=== PATIENT | female | born 1955 | race Caucasian/White ===

== ENCOUNTER → 2022-11-18 | Outpatient (CLI) | payer MEDICARE, OTHER ==
[~2022-11-18] VITALS: Ht 170.2 cm; Wt 106.5 kg
[~2022-11-18] MED LIST: ARIP2TAB27 PO; BUPR-344 PO; SUVO20TA; [UNRECOGNIZED DRUG - OTHER] PO
[2022-11-18 10:22] VITALS: BP 122/77
== END | disposition home or self-care (01) ==
LOC: SRCNTR 10:02
PROVIDERS: ATTEND Internal Medicine
DX: G47.33 Obstructive sleep apnea (adult) (pediatric) (principal); R06.00 Dyspnea, unspecified; E66.9 Obesity, unspecified
CPT/HCPCS: G0463; Z7500

== ENCOUNTER → 2023-05-08 | Outpatient (CLI) | payer MEDICARE, OTHER ==
[~2023-05-08] VITALS: Ht 170.2 cm; Wt 95.0 kg
[2023-05-08 09:02] VITALS: BP 130/71; PULSE 84; RESP 18; TEMP 98.2; O2SAT 97
== END | disposition home or self-care (01) ==
LOC: SRCNTR 08:51 → EDSTATUS 09:00
PROVIDERS: ATTEND Internal Medicine
DX: R06.09 Other forms of dyspnea (principal); G47.33 Obstructive sleep apnea (adult) (pediatric); E66.9 Obesity, unspecified; J45.909 Unspecified asthma, uncomplicated; Z79.899 Other long term (current) drug therapy
CPT/HCPCS: G0463; Z7500